=== PATIENT | female | born 1960 | race Caucasian/White ===

== ENCOUNTER 2016-05-30 02:00 | Emergency (ER) | payer OTHER ==
[~2016-05-30] VITALS: Ht 162.6 cm; Wt 82.1 kg
[2016-05-30 02:45] LABS: HEMATOCRIT 48.1 % (37.0-47.0); HEMOGLOBIN 16.2 gm/dL (12.0-15.0); MANUAL DIFF YES; MCH 28.7 pg (26.0-34.0); MCHC 33.6 % (28.0-37.0); MCV 85.4 fL (80.0-100.0); PLATELET COUNT 324 thou/uL (150-400); RBC 5.63 mil/uL (4.20-5.00); RDW 12.8 % (10.5-14.5); WBC 29.4 thou/uL (4.0-11.0)
[2016-05-30 02:47] LABS: URINE BLOOD 1+ (Negative); URINE COLOR YELLOW; URINE GLUCOSE-RANDOM* NEGATIVE (Negative); URINE KETONES 3+ (Negative); URINE LEUKOCYTES-REFLEX 2+ (Negative); URINE PROTEIN (DIPSTICK) 1+ (Negative); URINE SPECIFIC GRAVITY >= 1.030 (1.003-1.035); URINE UROBILINOGEN 0.2 E.U./dl (0.2-1.0)
[2016-05-30 02:49] LABS: ICTOTEST (BILI CONFIRMATORY) Negative (Negative); URINE BILIRUBIN NEGATIVE (Negative)
[2016-05-30 02:50] LABS: CALCIUM 9.9 mg/dL (8.5-10.1); CREATININE 0.9 mg/dL (0.6-1.3); POTASSIUM 3.9 mmol/L (3.5-5.1)
[2016-05-30] MEDS ORDERED: ZOFRAN ODT4 MG PO (02:52)
[2016-05-30] MEDS ORDERED: BENTYL 20 MG TA20 M1 PO (02:52)
[2016-05-30 02:56] LABS: ALBUMIN 4.6 g/dL (3.4-5.0); TOTAL BILIRUBIN 1.5 mg/dL (<0.1-1.0); TOTAL PROTEIN 8.2 g/dL (6.4-8.2)
[2016-05-30 03:16] LABS: SQUAMOUS 4-10 Moderate /LPF (0-3)
[2016-05-30 03:17] LABS: CASTS None Seen /LPF (None Seen); CRYSTALS None Seen /LPF (None Seen); URINE RBC 3-10 Few /HPF (0-2)
[2016-05-30] MEDS ORDERED: ATORVASTATIN CA40 MG PO (03:46)
[2016-05-30] MEDS ORDERED: ADDERALL XR 2525 MG PO (03:47)
[2016-05-30] MEDS ORDERED: ZOLOFT 50 MG TA50 M1 PO (03:47)
[2016-05-30] MEDS ORDERED: OMEPRAZOLE20 M1 PO (03:48)
[2016-05-30] MEDS ORDERED: VITAMIN D50000 UNIT PO (03:48)
[2016-05-30 04:35] LABS: ABSOLUTE NEUTROPHILS 26.8 thou/uL (1.4-8.2); TOTAL CELL COUNT 100
[2016-05-30 04:54] VITALS: BP 155/78
== END 2016-05-30 04:55 | disposition home or self-care (01) ==
LOC: ER 02:00
PROVIDERS: Emergency Medicine
DX: K52.89 Other specified noninfective gastroenteritis and colitis (principal)

== ENCOUNTER 2019-02-04 06:30 | Observation (INO) | payer BC, OTHER ==
[~2019-02-04] VITALS: Ht 162.6 cm; Wt 88.5 kg
[2019-02-04] VITALS (9 sets, daily range): BP systolic 99–160; BP diastolic 69–94
[~2019-02-04 06:30] MED LIST: ADDERALL XR 2525 MG PO; ATORVASTATIN CA40 MG PO; BENTYL 20 MG TA20 M1 PO; OMEPRAZOLE20 M1 PO; VITAMIN D50000 UNIT PO; ZOFRAN ODT4 MG PO; ZOLOFT 50 MG TA50 M1 PO
[2019-02-04] MEDS ORDERED: TYLENOL325 MG PO (07:00)
[2019-02-04] MEDS ORDERED: SULFASALAZINE500 M5 PO (07:01)
[2019-02-04] MEDS ORDERED: MAGOX 400400 MG PO (07:01)
[2019-02-04 07:07] LABS: HEMATOCRIT 39.2 % (37.0-47.0); HEMOGLOBIN 13.3 gm/dL (12.0-15.0); MCH 29.3 pg (26.0-34.0); MCV 86.3 fL (80.0-100.0); RBC 4.55 mil/uL (4.20-5.00); RDW 13.4 % (10.5-14.5); WBC 7.6 thou/uL (4.0-11.0)
[2019-02-04 07:16] LABS: CREATININE 0.7 mg/dL (0.6-1.0); POTASSIUM 3.7 mmol/L (3.5-5.1)
--- NOTE | 2019-02-04 11:28 | NUR ---
1115: PRESSURE HELD ON SITE FOR HEMATOMA. WILL CONTINUE TO MONITOR.
--- NOTE | 2019-02-04 14:35 | CATHLAB ---
[facility] [place] [address] INVASIVE PROCEDURE REPORT Name: MUNA DOWNING [id number] ������������� Admission: 02/04/19 ������������� Attend Phys: Vivek Nieto, Discharge: ��� ������������� ��� Date of : 58 �������������������� �� Report #: [id number] �������� ��������������������������������������������[id number] THIS REPORT FOR: //name// APPROVED REPORT Study performed: 02/04/2019 09:11:29 Patient Details Patient Status: Out-Patient Room #: The patient is a 58 year-old female Event Personnel Vivek Nieto Laser Specialist, Jer Lance RN RN, Payton Servin RTR Uriel, Jose Alejandro Ceja Monitor Procedures Performed Left Heart Cath w/or w/o Coronaries [id number] [facility] w/wo Plasty Single LAD [id number] Indication Chest pain Procedure Narrative The Right Groin^ was infiltrated with 1% Lidocaine subcutaneous anesthesia. A PINNACLE 6FR Sheath #[id number] sheath was inserted into the RFA^. Coronary angiography was performed using coronary diagnostic catheters. The right coronary system was accessed and visualized with a JR4 catheter. The left coronary system was accessed and visualized with a JL4 catheter. The left ventricle was accessed and visualized with a PIGTAIL catheter. Left ventricular/Aortic Valve gradient assessed via catheter pullback. Left ventriculogram was performed in 30 degree projection. Closure device was deployed with a 6 Fr MYNX. The patient tolerated the procedure well and there were no complications associated with the procedure. There was no hematoma. Intraoperative Conscious Sedation Sedation start time: 9.30 Case end Time: 10.30 Fentanyl 50 mcg Versed 1 mg Fluoro Time: 10.40 minutes Dose: DAP 77466.00 cGycm2 2205 mGy Contrast Type and Amount: Omnipaque 120 ml [facility] [place] [address] INVASIVE PROCEDURE REPORT Name: MUNA DOWNING Room #: REG [facility]#: [id number] ������������� Admission: 02/04/19 ������������� Attend Phys: Vivek Nieto, Discharge: ��� ������������� ��� Date of : 58 �������������������� �� Report #: [id number] �������� ��������������������������������������������[id number] Coronary Angiography The patient's coronary anatomy is right dominant. Diagnostic Cath Left Main Normal left main LAD Severe proximal 95% LAD stenosis Diagonal 1 Moderate size first diagonal branch, angiographically normal Diagonal 2 Small to moderate size second diagonal branch, angiographically normal Circumflex Circumflex was large, nondominant and comprised of two marginal branches OM1 First marginal branch was angiographically normal OM2 Second, distally arising marginal branch was angiographically Right Coronary Normal dominant right coronary R PDA Relatively small but angiographically normal posterior descending RPLV Moderate size posterior lateral branch, angiographically normal Left Ventriculography The left ventricle is normal in size with normal contractility. The left ventricular ejection fraction is estimated to be 60-65%. Left ventricular wall motion abnormalities are not present. There is no mitral insufficiency. Hemodynamics The aortic pressure is 159/85 mmHg with a mean of 121 mmHg. The left ventricular pressure is 146/15 mmHg with a mean of mmHg. The left ventricular end diastolic pressure is 24 mmHg. There was no gradient across the aortic valve upon pullback. Pullback from the left ventricle to the aorta revealed no gradient across the aortic valve. PCI Technique Lesion Anticoagulation was achieved with Heparin, Integrilin. Patient was preloaded with Effient. Percutaneous coronary intervention was performed on the proximal left anterior descending artery segment. The lesion stenosis prior to intervention was 95% with RADHA 3 flow. A LUGE Guide Catheter was used to engage the left main ostium. A EBU 3.5 Interventional Guidewire was used to cross the lesion. BALLOON DILATION A Balloon catheter 3.0X12 TREC was inserted and inflated up to 14.00atm for 34seconds. Repeat angiography revealed the following [facility] [address] [place] [address] INVASIVE PROCEDURE REPORT Name: MUNA DOWNING Room #: REG [facility]#: [id number] ������������� Admission: 02/04/19 ������������� Attend Phys: Vivek Nieto, Discharge: ��� ������������� ��� Date of : 58 �������������������� �� Report #: [id number] �������� ��������������������������������������������[id number] post-dilatation results: moderate residual calcific stenosis. 3.0X8/ 18-/ STENT DEPLOYMENT A drug-eluting stent 3.5X15 MCKINLEY was inserted and inflated up to 18.00atm for 31seconds. Repeat angiography revealed the following post-stent deployment results: 0% residual stenosis. POST STENT DEPLOYMENT BALLOON DILATION A Balloon catheter 4.0X12 NC TREC was inserted and inflated up to 15.00atm for 34seconds. Additional Inflation: 20.00atm for 25seconds. Final angiography reveals 0 % stenosis with RADHA 3 flow. Conclusion 1. Normal global and regional left ventricular systolic function. Ejection fraction 65%. 2. Normal left main 3. Severe 95% proximal LAD stenosis, successfully treated with a 3.5 x 15 mm Resolute stent, postdilated to 3.9 mm 4. Normal nondominant circumflex 5. Normal dominant right coronary Recommendations Cardiac Rehabilitation Referral Medications Administered DENIA Inhibitor (any) Aspirin (any) Beta Carol (any) Statin (any) Prasugrel ��������������������������������������������� <ELECTRONICALLY SIGNED> ���������������������������������������� By: Vivek Nieto MD, [facility] ��������������������������������������������� 02/04/19 1259 1259 1259 Vivek Nieto MD, FAC /INF
--- NOTE | 2019-02-04 15:06 | NUR ---
REC PT APPROX 1440, A&0X4, HAD 70 MIN OF BED REST AT THAT POINT, HAS HEADACHE, WILL ADM TYLENOL AND ENTER ADMIT INFO. GROIN SITE WAS REPORTED OFF HEMATOMAS AFTER INITIAL HEMOSTASIS, SITE IS COVERED W/GROIN BANDAGE WELL LARGE PIECE OF TAPE REPORTING RN SAID WE COULD REMOVE (THE LATTER) SPOUSE ACCOMPANIED PT. SHE'S FOLLOWING ORDERS AND WILL SIGN ALL PAPERWORK. CARDIAC MONITORED, PULSES GOOD, NO BRUIT. ENCOURAGED HER TO USE CALL LIGHT FOR ANY NEEDS
--- NOTE | 2019-02-04 17:26 | EKG ---
[address] [address] ELECTROCARDIOGRAM REPORT Name: MUNA DOWNING Room #: 205-P [facility]#: [id number] ������������������ Admission: 02/04/19 ������������������ Attend Phys: Vivek Nieto MD, Discharge: ������������������ Date of : 58 Report #: [id number] ����������������������������������������������������������������� [id number] THIS REPORT FOR: //name// [facility] Test Date: 2019-02-04 Test Time: 07:10:32 Pat Name: MUNA DOWNING Department: [facility] Gender: F Consultant Teacher: Tapan DUGAN : 1960 Requested By: Vivek Nieto Order Number: [id number] MD: Vivek Nieto Measurements Intervals [place] Rate: 73 P: -36 TN: 179 QRS: 38 QRSD: 97 T: 55 QT: 415 QTc: 458 Interpretive Statements Sinus rhythm Normal tracing No previous ECG available for comparison Electronically Signed On 02-04-2019 17:26:38 CDT by Vivek Nieto [email or web address] ��������������������������������������������� <ELECTRONICALLY SIGNED> ���������������������������������������� By: Vivek Nieto MD, [facility] ��������������������������������������������� 02/04/19 1726 0710 9 Vivek Nieto MD, FACC /EPI
[2019-02-05] VITALS (10 sets, daily range): BP systolic 115–155; BP diastolic 48–95
[2019-02-05 00:07] LABS: GLYCOHEMOGLOBIN (HGB A1C) 5.7 % (4.8-5.6)
--- NOTE | 2019-02-05 05:04 | NUR ---
RECEIVED PT'S CARE AT 1900; PT. ON BED; AOX4; RELATIVES AT THE BED SIDE; C/O PAIN OVER R. GROIN; REQUESTED PRN PAIN MEDICATION WITH HS MEDICATIONS; DURING ASSESSMENT AT SHIFT CHANGE NO HEMATOMA; DURING ASSESSMENT PRN PAIN MEDICATION GIVEN; AROUND 2200 PT. C/O NAUSEA; PRN ANTI-NAUSEA MEDICATION GIVEN; C/O INCREASE R. GROIN PAIN; DURING ASSESSESMENT R. GROIN AREA SHOWED ABOUT 1 CM HEMATOMA; PRESSURE HOLD FOR 30 MIN; BED REST START AT 2240; PT. ON BED REST FOR SIX HOURS; ASSESSMENT CHART ON POST CATH; PHYSICIAN NOTIFIED; PER ORDER BED RES THE WHOLE NIGHT; PT. EDUCATED ABOUT IT; ST. UNDERSTANDING; DURING ASSESSMENT NO HEMATOMA OVER R. GROWING AREA; CHECK CHARTING; MONITORING; ASSESSMENT CHARGED; FOLLOWING POC; WILL PASS ON REPORT.
[2019-02-05 05:14] LABS: HEMOGLOBIN 12.5 gm/dL (12.0-15.0); MCH 29.6 pg (26.0-34.0); MCHC 33.7 g/dL (28.0-37.0); MCV 87.7 fL (80.0-100.0); RBC 4.22 mil/uL (4.20-5.00); RDW 13.8 % (10.5-14.5); WBC 10.3 thou/uL (4.0-11.0)
[2019-02-05 05:34] LABS: ALBUMIN 3.5 g/dL (3.4-5.0); ANION GAP 9 mmol/L (7-16); BUN 7 mg/dL (7-18); CALCIUM 8.4 mg/dL (8.5-10.1); CHLORIDE 106 mmol/L (98-107); CHOLESTEROL 160 mg/dL (<200); CO2 26 mmol/L (21-32); CREATININE 0.6 mg/dL (0.6-1.0); GLUCOSE 125 mg/dL (74-106); HDL CHOLESTEROL 46 mg/dL (>40); LDL CHOLESTEROL 94 mg/dL (<100); SGOT 9 U/L (15-37); SGPT 17 U/L (30-65); SODIUM 141 mmol/L (136-145); TC:HDL 3.5 Ratio (Not establshd); TOTAL BILIRUBIN 0.7 mg/dL (<0.1-1.0); TOTAL PROTEIN 6.4 g/dL (6.4-8.2); TRIGLYCERIDE 100 mg/dL (<150); TROPONIN-I <0.06 ng/mL (<0.06); VLDL 20 mg/dL (<40)
[2019-02-05 05:42] LABS: SERUM ASSESSMENT Clear
--- NOTE | 2019-02-05 10:06 | NUR ---
RADIOLOGY CALLED TO SAY PROCEDURE WOULD BE DONE 1020, ADELE ZUÑIGA WILL BE INPUTTING THE CONSENT. SOON ORDER UP WILL PRINT OUT FOR PT TO SIGN
[2019-02-05] MEDS ORDERED: LISINOPRIL10 MG PO (10:10)
[2019-02-05] MEDS ORDERED: ASPIRIN325 PO (10:10)
[2019-02-05] MEDS ORDERED: TOPROL XL25 MG PO (10:10)
[2019-02-05] MEDS ORDERED: EFFIENT10 MG PO (10:10)
--- NOTE | 2019-02-05 11:51 | EKG ---
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 Operator: Tapan DUGAN : 1960 Requested By: Vivek Nieto Order Number: [id number] MD: Vivek Nieto Measurements Intervals [place] Rate: 71 P: -31 IN: 212 QRS: 35 QRSD: 94 T: 49 QT: 432 QTc: 470 Interpretive Statements Sinus rhythm Prolonged IN interval Baseline wander in lead(s) V2 No previous ECG available for comparison Electronically Signed On 02-05-2019 11:51:04 CDT by Vivek Nieto [email or web address] ��������������������������������������������� <ELECTRONICALLY SIGNED> ���������������������������������������� By: Vivek Nieto MD, [facility] ��������������������������������������������� 02/05/19 1151 1221 122 Vivek Nieto MD, FAC /EPI
--- NOTE | 2019-02-05 11:59 | EKG ---
[address] [address] ELECTROCARDIOGRAM REPORT Name: MUNA DOWNING Room #: 205-[facility]..#: [id number] ������������������ Admission: 02/04/19 ������������������ Attend Phys: Vivek Nieto MD, Discharge: ������������������ Date of : 58 Report #: [id number] ����������������������������������������������������������������� [id number] THIS REPORT FOR: //name// [facility] Test Date: 2019-02-05 Test Time: 07:13:26 Pat Name: MUNA DOWNING Department: Room: 205 Gender: F Environmental Programs Manager: JULIOCESAR : 1960 Requested By: Vivek Nieto Order Number: [id number] MD: Vivek Nieto Measurements Intervals [place] Rate: 70 P: -17 GA: 188 QRS: 28 QRSD: 96 T: 51 QT: 408 QTc: 441 Interpretive Statements Sinus rhythm Normal tracing Compared to ECG 02/04/2019 07:10:32 No significant changes Electronically Signed On 02-05-2019 11:59:34 CDT by Vivek Nieto [email or web address] ��������������������������������������������� <ELECTRONICALLY SIGNED> ���������������������������������������� By: Vivek Nieto MD, [facility] ��������������������������������������������� 02/05/19 1159 2 2 Vivek Nieto MD, [facility] /EPI
--- NOTE | 2019-02-07 08:19 | D ---
[facility] [place] [address] DISCHARGE SUMMARY Name: MUNA DOWNING Room #: 205-P [facility] M.RDarci#: [id number] Admission: 02/04/19 ������������������ Attend Phys: Vivek Nieto MD, Discharge: 02/05/19 ������������������ Date of : 58 Report #: [id number] THIS REPORT FOR: //name// CC: Vivek Stiles MD DISCHARGE DIAGNOSES: 1. Unstable angina with proximal left anterior descending stenting (3.5 x 15 mm Resolute medicated stent postdilated to 3.9 mm). 2. Hypertension. 3. Dyslipidemia. 4. Glucose intolerance. 5. Rheumatoid arthritis. 6. Attention deficit disorder, adult. 7. Former smoker. 8. Breast cancer. 9. Pseudoaneurysm with thrombin injection HISTORY OF PRESENT ILLNESS: For the complete details of the history of present illness, see dictated outpatient office notes. In summary, the patient is a 58-year-old woman with multiple cardiac risk factors including a family history of premature coronary artery disease. She presented with a recent history of exertional breathlessness. An outpatient stress study was abnormal and suggested high risk features. She is admitted for coronary angiography. HOSPITAL COURSE: The patient was admitted and underwent coronary angiography. This demonstrated normal left ventricular systolic function, normal left main. There was very high-grade proximal LAD disease, moderately calcified, which was stented with a 3.5 x 15 mm Resolute medicated stent, postdilated to 3.9 mm with a noncompliant balloon. She was treated with heparin, aspirin, Effient and Integrilin in the periprocedural setting. More than usual pain at groin site duplex demonstrated pseudoaneurysm for which thrombin injection was performed. Recent outpatient blood work includes a lipid profile: Total cholesterol 190, HDL 57, LDL 112, triglycerides 100. Hemoglobin A1c 6.0%. She was ambulating and pain free at the time of discharge. Her medicines were reconciled. DISCHARGE MEDICATIONS: Include omeprazole 40 mg daily, sertraline 150 mg daily, rosuvastatin 20 mg daily, aspirin 325 mg daily, Effient 10 mg daily, sulfasalazine 500 mg twice daily, lisinopril 10 mg daily, Toprol-XL 25 mg daily. DISCHARGE DIET: Low fat, low cholesterol, prudent diabetic diet, carb-controlled. [address] [address] DISCHARGE SUMMARY Name: MUNA DOWNING Room #: 205-P [facility] Seema Moraes#: [id number] Admission: 02/04/19 ������������������ Attend Phys: Vivek Nieto MD, Discharge: 02/05/19 ������������������ Date of : 58 Report #: [id number] FOLLOWUP: Followup arrangements were made for outpatient cardiac rehabilitation. Follow up right groin duplex as outpt. DISCHARGE ACTIVITY: As instructed post-catheterization. DISCHARGE CONDITION: Stable and improved. ��������������������������������������������� <ELECTRONICALLY SIGNED> ���������������������������������������� By: Vivek Nieto MD, [facility] ��������������������������������������������� 02/07/19 0819 1516 2225 Vivek Nieto MD, [facility] /nt
== END 2019-02-05 19:32 | disposition home or self-care (01) ==
LOC: CATH 06:30 → 2N 14:46
PROVIDERS: ADMIT Internal Medicine
DX: I25.110 Atherosclerotic heart disease of native coronary artery with unstable angina pectoris (principal); I10 Essential (primary) hypertension; E78.5 Hyperlipidemia, unspecified; M06.9 Rheumatoid arthritis, unspecified; F90.9 Attention-deficit hyperactivity disorder, unspecified type; E74.39 Other disorders of intestinal carbohydrate absorption; C50.919 Malignant neoplasm of unspecified site of unspecified female breast; I72.8 Aneurysm of other specified arteries; Z87.891 Personal history of nicotine dependence; Z88.5 Allergy status to narcotic agent; Z88.8 Allergy status to other drugs, medicaments and biological substances; Z79.899 Other long term (current) drug therapy

== ENCOUNTER → 2019-06-30 | Outpatient (CLI) | payer BC ==
[~2019-06-30] MED LIST changes: +ASPIRIN325 PO; +EFFIENT10 MG PO; +LISINOPRIL10 MG PO; +MAGOX 400400 MG PO; +SULFASALAZINE500 M5 PO; +TOPROL XL25 MG PO; +TYLENOL325 MG PO
== END ==
LOC: SJCVCIMAG 06-10 11:55
DX: I73.9 Peripheral vascular disease, unspecified (principal); Z87.891 Personal history of nicotine dependence

== ENCOUNTER → 2019-09-01 | Outpatient (CLI) | payer BC, OTHER | LOC: SJCVCIMAG 11:11 | DX: I25.10 Atherosclerotic heart disease of native coronary artery without angina pectoris (principal); Z95.1 Presence of aortocoronary bypass graft ==

== ENCOUNTER → 2019-12-05 | Outpatient (CLI) | payer BC, OTHER | LOC: SJCVCIMAG 10:24 | PROVIDERS: ATTEND Internal Medicine | DX: I34.0 Nonrheumatic mitral (valve) insufficiency (principal); I11.9 Hypertensive heart disease without heart failure; I25.10 Atherosclerotic heart disease of native coronary artery without angina pectoris; C50.912 Malignant neoplasm of unspecified site of left female breast; Z95.5 Presence of coronary angioplasty implant and graft ==

== ENCOUNTER → 2020-03-09 | Outpatient (CLI) | payer BC, OTHER | LOC: SJCVCIMAG 03-05 08:32 | PROVIDERS: ATTEND Internal Medicine | DX: I25.10 Atherosclerotic heart disease of native coronary artery without angina pectoris (principal); I10 Essential (primary) hypertension; Z98.61 Coronary angioplasty status ==

== ENCOUNTER → 2020-06-20 | Outpatient (CLI) | payer OTHER | LOC: SJCVCIMAG 06-11 08:29 | PROVIDERS: ATTEND Internal Medicine | DX: I25.10 Atherosclerotic heart disease of native coronary artery without angina pectoris (principal); Z95.828 Presence of other vascular implants and grafts; Z85.3 Personal history of malignant neoplasm of breast; Z92.21 Personal history of antineoplastic chemotherapy ==

== ENCOUNTER 2020-08-10 11:26 | Emergency (ER) | payer OTHER ==
[~2020-08-10] VITALS: Ht 162.6 cm; Wt 74.8 kg
--- NOTE | ~2020-08-10 | EMS ---
[facility] [address] [place] [address] EMS Patient Care Report Name: MUNA DOWNING Room #: REG DEMETRA Moraes#: [id number] Admission: 08/10/20 Attend Phys: Discharge: Date of : 58 Report #: [id number] THIS REPORT FOR: //name// Report Transmitted: 08/10/2020 11:19 EMS Care Summary [facility] Incident [id number] @ 08/10/2020 10:35 Incident Location [address] [place] [address] [place] [address] Patient MUNA DOWNING Female, 60 Years 1960 Patient Address [address] [place] [address] Patient History Cancer, Unspecified,Diabetes,Cardiac - Stent, Patient Allergies Percocet, Patient Medications Metformin, Chief Complaint Nausea and vomiting Disposition Transported No Lights/[place] Dispatch Reason Sick Person Transported To [facility] Units dispatched to the residence of a 60 year old female pt with a chief complaint of nausea and vomiting. Upon arrival crew located pt laying prone on the floor. Pt presented with a patent airway and diaphoretic pale skin. Pt stated that she had been feeling generally unwell since she woke up [facility] [address] [place] [address] EMS Patient Care Report Name: MUNA DOWNING Room #: REG DEMETRA Moraes#: [id number] Admission: 08/10/20 Attend Phys: Discharge: Date of : 58 Report #: [id number] around 0800 hours. Pt stated that she had been nauseous and vomiting. Pt denied chest pain or SOA. Pt stated that she had been light headed and did not feel like she could stand. Pt was placed on stair chair to be moved to the ambulance. Pt was placed on stretcher by crew and secured using straps. 18 g IV was established in pts right hand. Blood glucose check was 186. 12 lead EKG was preformed and no ST segment elevation was noted at this time. Pt stated that she was having pain in her upper left abd. Pt denied pain made worse upon palpation. 4 mg zofran was administered IV. 250 mL fluid bolus was administered in route to the hospital. Pt stated that she had 5 to 6 beers the night prior. Pt stated that was more then she usually consumed but stated that she had 3 to 4 beers several days a week. Pt denied hx of pancreatitis or gallbladder problems. Pt was transported to [facility] without incident and care was transferred to ED staff. Initial Vitals @10:58P: 70,R: 25,BP: 146/88, @11:08P: 72,R: 59,CO: 0,SpO2: 100, @11:11P: 68,BP: 153/91,Pain: 2/10,GCS: 15,SpO2: 99, @10:49P: 64,BP: 159/113,Pain: 4/10,GCS: 15,SpO2: 89, @10:50P: 101,R: 27, Assessments @10:42MENTAL:No Abnormalities,SKIN:Diaphoresis,Pale,HEENT:Head/Face: No Abnormalities,LUNG SOUNDS:General: Diarrhea,General: Nausea,General: Vomiting,Right Upper: Tenderness,ABDOMEN:General: Diarrhea,General: Nausea,General: Vomiting,Right Upper: Tenderness,PELVIS//GI:EXTREMITIES:PULSE:NEURO:@10:55MENTAL:No Abnormalities,SKIN:Diaphoresis,Pale,HEENT:Head/Face: No Abnormalities,LUNG SOUNDS:General: Nausea,General: Vomiting,Right Upper: Tenderness,ABDOMEN:General: Nausea,General: Vomiting,Right Upper: Tenderness,PELVIS//GI:No Abnormalities,EXTREMITIES:Capillary Refill: Right Upper: < 2 Sec,Left Arm: No Abnormalities,Right Arm: No Abnormalities,Left Leg: No Abnormalities,Right Leg: No Abnormalities,PULSE:Radial: 2+ Normal,NEURO:No Abnormalities, Impression Acute abdomen Procedures @10:42ALS AssessmentResponse: UnchangedSucceeded@10:58Zofran - 4 Milligrams (mg) - Intravenous (IV)Response: Unchanged@10:56Saline Lock 0cc (18 ga) Site: Hand-RightResponse: UnchangedSucceeded@10:5012-Lead ECGResponse: UnchangedSucceeded Timeline 10:34,Call Received [address] [address] EMS Patient Care Report Name: MUNA DOWNING PABLO Room #: REG DEMETRA Moraes#: [id number] Admission: 08/10/20 Attend Phys: Discharge: Date of : 58 Report #: [id number] 10:34,Psap Call 10:35,Dispatched 10:36,En Route 10:40,On Scene 10:41,At Patient 10:42,ALS Assessment,Response: UnchangedSucceeded, 10:49,BP: 159/113 M,PULSE: 64,RR: R,SPO2: 89 Ox,ETCO2: ,BG: ,PAIN: 4,GCS: 15, 10:50,12-Lead ECG,Response: UnchangedSucceeded, 10:50,BP: / M,PULSE: 101,RR: 27 R,SPO2: Ox,ETCO2: ,BG: ,PAIN: ,GCS: , 10:54,Depart Scene 10:56,Saline Lock 0cc 18 ga Site: Hand-Right,Response: UnchangedSucceeded, 10:58,Zofran - 4 Milligrams (mg) - Intravenous (IV),Response: Unchanged 10:58,BP: 146/88 M,PULSE: 70,RR: 25 R,SPO2: Ox,ETCO2: ,BG: ,PAIN: ,GCS: , 11:08,BP: / M,PULSE: 72,RR: 59 R,SPO2: 100 Ox,ETCO2: ,BG: ,PAIN: ,GCS: , 11:11,BP: 153/91 M,PULSE: 68,RR: R,SPO2: 99 Ox,ETCO2: ,BG: ,PAIN: 2,GCS: 15, 11:21,At Destination 11:48,Call Closed Disclaimer v1.1 Copyright 2020 [employer] This EMS Care Summary contains data elements from the applicable legal record (which may be displayed differently). It is designed to provide pertinent information for the following purposes: continuity of care, clinical quality, and state data reporting. The complete legal record is available to ED staff and administrators of the receiving hospital in [email or web address]'s Patient Tracker. All data is provided "as is."
--- NOTE | ~2020-08-10 | EMS ---
[facility] [address] [place] [address] EMS Patient Care Report Name: MUNA DOWNING Room #: DEP DEMETRA Moraes#: [id number] Admission: 08/10/20 Attend Phys: Discharge: 08/10/20 Date of : 58 Report #: [id number] THIS REPORT FOR: //name// Report Transmitted: 08/11/2020 20:46 EMS Care Summary [facility] Incident [id number] @ 08/10/2020 10:35 Incident Location [address] [place] [address] [place] [address] Patient MUNA DOWNING Female, 60 Years 1960 Patient Address [address] [place] [address] [place] [address] Patient History Cancer, Unspecified,Diabetes,Cardiac - Stent, Patient Allergies Percocet, Patient Medications Metformin, Chief Complaint Nausea and vomiting Disposition Transported No Lights/[place] Dispatch Reason Sick Person Transported To [facility] Units dispatched to the residence of a 60 year old female pt with a chief complaint of nausea and vomiting. Upon arrival crew located pt laying prone on the floor. Pt presented with a patent airway and diaphoretic pale skin. Pt stated that she had been feeling generally unwell since she woke up [facility] [address] [place] [address] EMS Patient Care Report Name: MUNA DOWNING Room #: DEP ER Aleisha#: [id number] Admission: 08/10/20 Attend Phys: Discharge: 08/10/20 Date of : 58 Report #: [id number] around 0800 hours. Pt stated that she had been nauseous and vomiting. Pt denied chest pain or SOA. Pt stated that she had been light headed and did not feel like she could stand. Pt was placed on stair chair to be moved to the ambulance. Pt was placed on stretcher by crew and secured using straps. 18 g IV was established in pts right hand. Blood glucose check was 186. 12 lead EKG was preformed and no ST segment elevation was noted at this time. Pt stated that she was having pain in her upper left abd. Pt denied pain made worse upon palpation. 4 mg zofran was administered IV. 250 mL fluid bolus was administered in route to the hospital. Pt stated that she had 5 to 6 beers the night prior. Pt stated that was more then she usually consumed but stated that she had 3 to 4 beers several days a week. Pt denied hx of pancreatitis or gallbladder problems. Pt was transported to [facility] without incident and care was transferred to ED staff. Initial Vitals @10:58P: 70,R: 25,BP: 146/88, @11:08P: 72,R: 59,CO: 0,SpO2: 100, @11:11P: 68,BP: 153/91,Pain: 2/10,GCS: 15,SpO2: 99, @10:49P: 64,BP: 159/113,Pain: 4/10,GCS: 15,SpO2: 89, @10:50P: 101,R: 27, Assessments @10:42MENTAL:No Abnormalities,SKIN:Diaphoresis,Pale,HEENT:Head/Face: No Abnormalities,LUNG SOUNDS:General: Diarrhea,General: Nausea,General: Vomiting,Right Upper: Tenderness,ABDOMEN:General: Diarrhea,General: Nausea,General: Vomiting,Right Upper: Tenderness,PELVIS//GI:EXTREMITIES:PULSE:NEURO:@10:55MENTAL:No Abnormalities,SKIN:Diaphoresis,Pale,HEENT:Head/Face: No Abnormalities,LUNG SOUNDS:General: Nausea,General: Vomiting,Right Upper: Tenderness,ABDOMEN:General: Nausea,General: Vomiting,Right Upper: Tenderness,PELVIS//GI:No Abnormalities,EXTREMITIES:Capillary Refill: Right Upper: < 2 Sec,Left Arm: No Abnormalities,Right Arm: No Abnormalities,Left Leg: No Abnormalities,Right Leg: No Abnormalities,PULSE:Radial: 2+ Normal,NEURO:No Abnormalities, Impression Acute abdomen Procedures @10:42ALS AssessmentResponse: UnchangedSucceeded@10:58Zofran - 4 Milligrams (mg) - Intravenous (IV)Response: Unchanged@10:56Saline Lock 0cc (18 ga) Site: Hand-RightResponse: UnchangedSucceeded@10:5012-Lead ECGResponse: UnchangedSucceeded Timeline 10:34,Call Received [address] [address] EMS Patient Care Report Name: MUNA DOWNING Room #: DEP DEMETRA Moraes#: [id number] Admission: 08/10/20 Attend Phys: Discharge: 08/10/20 Date of : 58 Report #: [id number] 10:34,Psap Call 10:35,Dispatched 10:36,En Route 10:40,On Scene 10:41,At Patient 10:42,ALS Assessment,Response: UnchangedSucceeded, 10:49,BP: 159/113 M,PULSE: 64,RR: R,SPO2: 89 Ox,ETCO2: ,BG: ,PAIN: 4,GCS: 15, 10:50,12-Lead ECG,Response: UnchangedSucceeded, 10:50,BP: / M,PULSE: 101,RR: 27 R,SPO2: Ox,ETCO2: ,BG: ,PAIN: ,GCS: , 10:54,Depart Scene 10:56,Saline Lock 0cc 18 ga Site: Hand-Right,Response: UnchangedSucceeded, 10:58,Zofran - 4 Milligrams (mg) - Intravenous (IV),Response: Unchanged 10:58,BP: 146/88 M,PULSE: 70,RR: 25 R,SPO2: Ox,ETCO2: ,BG: ,PAIN: ,GCS: , 11:08,BP: / M,PULSE: 72,RR: 59 R,SPO2: 100 Ox,ETCO2: ,BG: ,PAIN: ,GCS: , 11:11,BP: 153/91 M,PULSE: 68,RR: R,SPO2: 99 Ox,ETCO2: ,BG: ,PAIN: 2,GCS: 15, 11:21,At Destination 11:48,Call Closed Disclaimer v1.1 Copyright 2020 [employer] This EMS Care Summary contains data elements from the applicable legal record (which may be displayed differently). It is designed to provide pertinent information for the following purposes: continuity of care, clinical quality, and state data reporting. The complete legal record is available to ED staff and administrators of the receiving hospital in [employer] Patient Tracker. All data is provided "as is."
[2020-08-10 12:12] LABS: HEMATOCRIT 43.1 % (37.0-47.0); HEMOGLOBIN 14.6 gm/dL (12.0-15.0); MCH 29.3 pg (26.0-34.0); MCHC 33.8 g/dL (28.0-37.0); MCV 86.8 fL (80.0-100.0); RBC 4.97 mil/uL (4.20-5.00); RDW 13.7 % (10.5-14.5); WBC 13.4 thou/uL (4.0-11.0)
[2020-08-10 12:20] LABS: CALCIUM 9.5 mg/dL (8.5-10.1); CREATININE 0.9 mg/dL (0.6-1.0); POTASSIUM 3.7 mmol/L (3.5-5.1)
[2020-08-10 12:25] LABS: ALBUMIN 4.7 g/dL (3.4-5.0); TOTAL BILIRUBIN 0.9 mg/dL (0.2-1.0); TOTAL PROTEIN 7.9 g/dL (6.4-8.2)
[2020-08-10 15:18] LABS: CALCIUM 8.3 mg/dL (8.5-10.1); CREATININE 0.7 mg/dL (0.6-1.0); POTASSIUM 3.6 mmol/L (3.5-5.1)
[2020-08-10] MEDS ORDERED: ZOFRAN ODT4 MG PO (15:33)
[2020-08-10 16:38] VITALS: BP 150/66
== END 2020-08-10 16:39 | disposition home or self-care (01) ==
LOC: ER 11:26
PROVIDERS: Nurse Practitioner Family
DX: R11.2 Nausea with vomiting, unspecified (principal); F10.10 Alcohol abuse, uncomplicated; K21.9 Gastro-esophageal reflux disease without esophagitis; G43.909 Migraine, unspecified, not intractable, without status migrainosus; E78.5 Hyperlipidemia, unspecified; Z79.899 Other long term (current) drug therapy; Z79.82 Long term (current) use of aspirin; Z88.8 Allergy status to other drugs, medicaments and biological substances; Y90.0 Blood alcohol level of less than 20 mg/100 ml

== ENCOUNTER 2020-08-12 08:47 | Inpatient (IN) | payer OTHER ==
[~2020-08-12] VITALS: Ht 162.6 cm; Wt 81.6 kg
[2020-08-12 08:51] VITALS: BP 185/124
[2020-08-12 09:41] LABS: ABSOLUTE NEUTROPHILS 12.1 thou/uL (1.4-8.2); BASOPHILS 0.6 % (0.0-2.0); EOSINOPHILS 0.3 % (0.0-3.0); HEMATOCRIT 43.1 % (37.0-47.0); HEMOGLOBIN 14.8 gm/dL (12.0-15.0); LYMPHOCYTES 6.5 % (24.0-44.0); MCH 29.9 pg (26.0-34.0); MCHC 34.4 g/dL (28.0-37.0); MONOCYTES 7.5 % (1.0-8.0); PLATELET COUNT 225 thou/uL (150-400); POLYS 85.1 % (36.0-66.0); RBC 4.96 mil/uL (4.20-5.00); RDW 13.7 % (10.5-14.5); WBC 14.2 thou/uL (4.0-11.0)
[2020-08-12 09:45] LABS: ANION GAP 23 mmol/L (7-16); BUN 18 mg/dL (7-18); CALCIUM 9.7 mg/dL (8.5-10.1); CHLORIDE 95 mmol/L (98-107); CO2 21 mmol/L (21-32); GLUCOSE 192 mg/dL (74-106); SODIUM 139 mmol/L (136-145)
[2020-08-12 09:56] LABS: ALBUMIN 4.6 g/dL (3.4-5.0); LIPASE 70 U/L (73-393); SGOT 14 U/L (15-37); SGPT 24 U/L (14-59); TOTAL BILIRUBIN 2.1 mg/dL (0.2-1.0); TOTAL PROTEIN 7.9 g/dL (6.4-8.2); TROPONIN-I <0.06 ng/mL (<0.06)
--- NOTE | 2020-08-12 10:49 | NUR ---
SPOKE TO DINORA WITH IV TEAM, NOTIFIED EDP ORDERED CENTRAL LINE. DINORA REPORTED SHE WOULD COME TO UNIT TO PLACE AFTER SHE WAS DONE IN THE ICU.
--- NOTE | 2020-08-12 11:31 | EKG ---
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[place] : 1960 Requested By: Jose Alejandro Chang Order Number: [id number] MD: Keith Estevez Measurements Intervals [place] Rate: 76 P: -24 GA: 164 QRS: 44 QRSD: 95 T: 42 QT: 432 QTc: 486 Interpretive Statements Sinus rhythm Borderline prolonged QT interval Compared to ECG 02/05/2019 07:13:26 No significant changes Electronically Signed On 08-12-2020 11:31:03 CDT by Keith Estevez [email or web address] <ELECTRONICALLY SIGNED> By: Keith Estevez MD, [facility] 08/12/20 1131 0934 3 Keith Estevez MD, FACC /EPI
[2020-08-12] MEDS ORDERED: ARIMIDEX PO (11:38)
[2020-08-12 13:18] VITALS: BP 142/87
[2020-08-12 14:54] LABS: URINE BLOOD TRACE (Negative); URINE CLARITY CLEAR; URINE COLOR YELLOW; URINE GLUCOSE-RANDOM* NEGATIVE (Negative); URINE KETONES 3+ (Negative); URINE LEUKOCYTES-REFLEX NEGATIVE (Negative); URINE NITRITE-REFLEX NEGATIVE (Negative); URINE PROTEIN (DIPSTICK) 1+ (Negative); URINE SPECIFIC GRAVITY 1.025 (1.005-1.035)
[2020-08-12 14:56] LABS: ICTOTEST (BILI CONFIRMATORY) Negative (Negative); URINE BILIRUBIN NEGATIVE (Negative)
[2020-08-12 15:16] LABS: HYALINE CASTS 4-10 Moderate /LPF (None Seen); MUCUS >6 Heavy strn/LPF (None Seen)
[2020-08-12 15:17] LABS: CRYSTALS None Seen /LPF (None Seen); SQUAMOUS 0-3 Few /LPF (0-3); URINE RBC 0-2 Rare /HPF (0-2); URINE WBC-REFLEX 0-5 Rare /HPF (0-5)
[2020-08-12 15:19] LABS: BACTERIA-REFLEX 1-9 Few /HPF (None Seen)
--- NOTE | 2020-08-12 15:33 | NUR ---
ATTEMPTED TO CALL REPORT LINE RANG CONTINUOUSLY WITHOUT ANSWER. WILL TRY AGAIN IN A FEW MINUTES. EXT: [id number]
[2020-08-12 16:00] VITALS: BP 105/69
[2020-08-12 16:08] VITALS: BP 135/86
[2020-08-12] MEDS ORDERED: WELLBUTRIN XL300 MG (20:12)
[2020-08-12] MEDS ORDERED: [UNRECOGNIZED DRUG - OTHER] (20:14)
[2020-08-12] MEDS ORDERED: VITAMIN D (20:17)
[2020-08-13 05:29] LABS: ABSOLUTE NEUTROPHILS 5.9 thou/uL (1.4-8.2); EOSINOPHILS 1.7 % (0.0-3.0); HEMATOCRIT 37.2 % (37.0-47.0); LYMPHOCYTES 17.6 % (24.0-44.0); MCH 30.2 pg (26.0-34.0); MCHC 34.4 g/dL (28.0-37.0); MCV 87.9 fL (80.0-100.0); MONOCYTES 10.7 % (1.0-8.0); PLATELET COUNT 192 thou/uL (150-400); RBC 4.23 mil/uL (4.20-5.00); RDW 13.9 % (10.5-14.5); WBC 8.5 thou/uL (4.0-11.0)
[2020-08-13 05:32] LABS: APTT 23.6 Seconds (24.5-32.8); PROTIME 11.1 Seconds (9.3-11.4)
[2020-08-13 05:34] LABS: ALBUMIN 3.5 g/dL (3.4-5.0); CALCIUM 8.5 mg/dL (8.5-10.1); CREATININE 0.8 mg/dL (0.6-1.0); POTASSIUM 3.2 mmol/L (3.5-5.1); TOTAL BILIRUBIN 1.8 mg/dL (0.2-1.0); TOTAL PROTEIN 6.2 g/dL (6.4-8.2)
[2020-08-13 05:39] LABS: HEMOGLOBIN 12.8 gm/dL (12.0-15.0)
--- NOTE | 2020-08-13 05:46 | NUR ---
PT AMBULATING TO BATHROOM INDEPENDENTLY AND IS TOLERATING WELL. DENIES NEED FOR PAIN MEDICINE. DENIES NAUSEA. RESTING COMFORTABLY. NO NEEDS VOICED. CALL LIGHT WITHIN REACH. FREQUENT OBSERVATION.
[2020-08-13 07:35] VITALS: BP 136/86
--- NOTE | 2020-08-13 07:50 | EKG ---
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 08/13/20 0750 1621 1621 Keith Estevez MD, FACC /EPI
--- NOTE | 2020-08-13 09:52 | NUR ---
Assumed care of pt at 0700. Pt a&ox4. Denies pain this am. IV antibiotics infusing. Hepatobiliary test scheduled for today. Up ad juan miguel. No other concerns at this time. Call light within reach. Will continue to monitor.
--- NOTE | 2020-08-13 15:27 | NUR ---
assessment: CM REVIEWED CHART AND SPOKE WITH PATIENT AND HER . PT WAS ADMITTED DUE TO NAUSEA AND VOMITTING. PTS CT ABDOMEN WAS UNREMARKABLE. PT HAS INCREASED BILIRUBIN AND GENERAL SURGERY IS CONSULTED. PT IS TO HAVE PIPIDA SCAN AND MAY NEED LAP YARA. PT REPORTS LIVING IN A HOUSE WITH HER . PT REPORTS ABOUT 13 STEPS WITH HANDRAILS TO ENTER THE HOME AND NO FURTHER STEPS TO BEDROOM. PT REPORTS SHE IS FULLY INDEPENDENT WITH ADLS AND AMBULATION. PT REPORTS SHE HAS A SHOWER CHAIR IN ONE SHOWER AND ALSO HAS A CPAP AT HOME. PT REPORTS NO HX OF HH OR SNF. CM DISCUSSED ROLE. PT DOES NOT ANTICIPATE HAVING ANY NEEDS AT DISCHARGE.
[2020-08-13 16:15] VITALS: BP 134/81
[2020-08-13 20:30] VITALS: BP 153/81
[2020-08-14 02:06] LABS: GLYCOHEMOGLOBIN (HGB A1C) 5.9 % (4.8-5.6)
--- NOTE | 2020-08-14 03:29 | NUR ---
ASSUMED CARE PT PT AT SHIFT CHANGE. PT AOX4 AND LETS NEEDS BE KNOWN. PT IS UP AD KENY. PT DENIED PAIN, NAUSEA OR SOA. ASSESMENT CHARTED. ABX TREATMENT CONTINUED. PT WAS PLACED NPO AT MIDNIGHT FOR AM PROCEDURE. PT WAS ABLE TO GET COMFORTABLE AND SLEEP PART OF THE SHIFT. VSS AND NO S/S OF ACUTE DISTRESS. WILL CONTINUE TO MONITOR.
[2020-08-14 03:56] VITALS: BP 126/84
[2020-08-14 05:49] LABS: ALBUMIN 3.4 g/dL (3.4-5.0); CALCIUM 8.5 mg/dL (8.5-10.1); CREATININE 0.7 mg/dL (0.6-1.0); POTASSIUM 3.3 mmol/L (3.5-5.1); TOTAL BILIRUBIN 1.6 mg/dL (0.2-1.0)
[2020-08-14 07:15] VITALS: BP 150/100
--- NOTE | 2020-08-14 09:57 | NUR ---
Assumed care of pt at 0700. Pt a&ox4. Minimal abd pain. IVF and IN antibiotics infusing. Surgery today. Potassium 3.3. Supplemental potassium administered per protocol. Will continue to monitor.
[2020-08-14 11:57] VITALS: BP 126/86
--- NOTE | 2020-08-14 12:57 | NUR ---
ON-GOING ASSESSMENT: CM REVIEWED CHART. PT IS S/P [facility] [place] TODAY. CM WILL CONTINUE TO FOLLOW TO ASSIST NEEDED. PT DOES NOT ANTICIPATE HAVING ANY NEEDS.
[2020-08-14 20:07] VITALS: BP 139/86
--- NOTE | 2020-08-15 04:12 | NUR ---
ASSUMED CARE OF PT AT 1900HRS. PT IS AOX4 AND LETS NEEDS BE KNOWN. PT IS UP AD KENY. PT IS POST OP DAY 0. 4X LAP SITES ARE C/D/I. PT WALKED AROUND THE UNIT SEVERAL TIMES. PT REPORTED SOME PAIN AND WAS COMFORTABLE WITH SCHEDULED PAIN MEDS. PT DENIED NAUSEA OR SOA. PT IS VOIDING AND HAD A BM THIS SHIFT. ABX TREATMENT CONTINUED. PT WAS ABLE TO GET COMFORTABLE AND SLEEP PART OF THE SHIFT. VSS AND NO S/S OF ACUTE DISTRESS. WILL CONTINUE TO MONITOR.
[2020-08-15 07:40] VITALS: BP 125/77; BP 128/74
--- NOTE | 2020-08-15 10:52 | NUR ---
ON-GOING ASSESSMENT: cM REVIEWED CHART. PT HAS ORDERS TO DISCHARGE HOME TODAY WITH NO NEEDS FROM CM.
[2020-08-15 13:48] VITALS: BP 139/86
--- NOTE | 2020-08-15 14:15 | NUR ---
PT ASSESSED AT START OF SHIFT. PROGRESSING WELL. PASSING FLATUS AND HAD LIQUID BM. EATING AND DRINKING WELL. AMBUALTING THE HALLS. 4 LAP SITES W/ SOME BRUISING BUT CLOSELY APPROXIMATED. NO REQUESTS FOR PAIN MEDS. DISCHARGED AT THIS TIME W/ ALL BELONGINGS.
--- NOTE | 2020-08-15 18:06 | PATH ---
[facility] [address] [place] [address] PATHOLOGY RPT PROCEDURE Name: MUNA DOWNING Room #: 442-P DIS IN M.R.#: [id number] Admission: 08/12/20 Date of : 58 Discharge: 08/15/20 Report #: [id number] Path Case #: [id number] [facility] Accession Number: [id number] . 01 Material submitted: . gallbladder - GALLBLADDER . 01 Clinical history: . LAPAROSCOPIC CHOLECYSTECTOMY WITH G CALCULUS CHOLECYSTITIS NV SEEN THURSDAY NOT BETTER . 02 Diagnosis: Gallbladder, cholecystectomy: - Mild chronic cholecystitis. 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 02 Electronically signed: . Yoana Stuart MD, Pathologist NPI- [id number] . 01 Gross description: . Fixative: Formalin Labeled: Gallbladder Specimen received: Intact gallbladder Dimensions: 8.7 x 3.3 x 3.0 cm Serosa: Blue-quintanilla Mucosa: Velvety, bile-stained Average wall thickness: 0.1 cm Calculi: Not identified (upon filtration of gallbladder) Abnormalities: None identified . Sap Bods Developer body, fundus, and the cystic duct margin in A1. (CAA; 08/14/2020) QA/[facility] 08/14/2020 1726 Local . 02 Pathologist provided ICD-10: K81.1 . 02 CPT . [id number] Specimen Comment: A courtesy copy of this report has been sent to [phone] Specimen Comment: [phone], Specimen Comment: Report sent to ,DR GALLEGOS / DR WICK Performed at: [address] [address] PATHOLOGY RPT PROCEDURE Name: MUNA DOWNING Room #: 442-P DIS IN .R.#: [id number] Admission: 08/12/20 Date of : 58 Discharge: 08/15/20 Report #: [id number] Path Case #: [id number] [place] [id number] [id number] MD Yared Red MD Phone: [phone] Performed at: [address] [id number] MD Yoana Stuart MD Phone: [phone]
== END 2020-08-15 14:20 | disposition home or self-care (01) | DRG 419 ==
LOC: ER 08:47 → 4S 16:10 → ER 16:10 → 4S 17:27
PROVIDERS: Emergency Medicine; Surgery; ADMIT Internal Medicine; ATTEND Internal Medicine
DX: K81.9 Cholecystitis, unspecified (principal); I25.10 Atherosclerotic heart disease of native coronary artery without angina pectoris; K21.9 Gastro-esophageal reflux disease without esophagitis; E78.00 Pure hypercholesterolemia, unspecified; G43.909 Migraine, unspecified, not intractable, without status migrainosus; I10 Essential (primary) hypertension; E78.5 Hyperlipidemia, unspecified; R73.03 Prediabetes; M06.9 Rheumatoid arthritis, unspecified; F90.9 Attention-deficit hyperactivity disorder, unspecified type; E66.01 Morbid (severe) obesity due to excess calories; K82.8 Other specified diseases of gallbladder; Z20.822 Contact with and (suspected) exposure to COVID-19; Z85.3 Personal history of malignant neoplasm of breast; Z79.82 Long term (current) use of aspirin; Z79.899 Other long term (current) drug therapy; Z88.5 Allergy status to narcotic agent; Z88.8 Allergy status to other drugs, medicaments and biological substances; Z72.89 Other problems related to lifestyle; Z68.30 Body mass index [BMI] 30.0-30.9, adult
CPT/HCPCS: 10195; 50010; 50101; 50411; 50555; 50558; 51489; 52265; 52266; 53307; 53310; 53312; 54022; 54118; 55245; 56462; 56525; 56526; 56674; 58574; 62110; 62900; 70005

== ENCOUNTER → 2021-02-06 | Outpatient (CLI) | payer OTHER ==
[~2021-02-06] MED LIST changes: +ARIMIDEX PO; +VITAMIN D; +WELLBUTRIN XL300 MG; +[UNRECOGNIZED DRUG - OTHER]
== END ==
LOC: SJCVCIMAG 01-17 08:02
PROVIDERS: ATTEND Internal Medicine
DX: I25.10 Atherosclerotic heart disease of native coronary artery without angina pectoris (principal); I10 Essential (primary) hypertension; E78.5 Hyperlipidemia, unspecified; C50.912 Malignant neoplasm of unspecified site of left female breast; E78.00 Pure hypercholesterolemia, unspecified; K21.9 Gastro-esophageal reflux disease without esophagitis; Z87.891 Personal history of nicotine dependence; Z72.89 Other problems related to lifestyle; Z79.82 Long term (current) use of aspirin; Z79.899 Other long term (current) drug therapy